=== PATIENT | male | born 1960 | race Caucasian/White ===

== ENCOUNTER → 2018-09-19 | Outpatient (REF) | payer OTHER | LOC: M SMT 17:08 | PROVIDERS: ATTEND Urology | DX: R33.8 Other retention of urine (principal) | CPT/HCPCS: 87088; 87186; G0463 ==

== ENCOUNTER → 2018-10-05 | Outpatient (CLI) | payer OTHER ==
[2018-10-05 18:49] LABS: APPEARANCE, URINE CLEAR (CLEAR); BACTERIA, URINE AUTO NEGATIVE (NEGATIVE); BILIRUBIN, URINE AUTO NEGATIVE (NEGATIVE); BLOOD, URINE BLOOD 3+ (NEGATIVE); COLOR, URINE COLORLESS (YELLOW); GLUCOSE, URINE (UA) AUTO NEGATIVE (NEGATIVE); KETONE, URINE AUTO NEGATIVE (NEGATIVE); LEUKOCYTE ESTERASE, URINE AUTO TRACE (NEGATIVE); MUCUS, URINE SMALL (NEGATIVE); NITRITE, URINE AUTO NEGATIVE (NEGATIVE); PROTEIN, URINE AUTO NEGATIVE (NEGATIVE); RBC, URINE AUTO TNTC /HPF (0-3); SPECIFIC GRAVITY URINE AUTO 1.005 (1.002-1.035); SQUAMOUS EPITHELIAL CELL UR AU 0 /HPF (0-6); UROBILINOGEN, URINE AUTO 0.2 mg/dL (0.0-2.0); WBC, URINE AUTO 8 /HPF (0-3)
== END ==
LOC: M SMT 08:00
DX: Z01.818 Encounter for other preprocedural examination (principal); R97.20 Elevated prostate specific antigen [PSA]; R33.9 Retention of urine, unspecified; Z96.0 Presence of urogenital implants
CPT/HCPCS: 81001

== ENCOUNTER → 2018-11-06 | Outpatient (CLI) | payer OTHER ==
[2018-11-06 18:46] LABS: ALT/SGPT 50 U/L (12-78); BILIRUBIN,TOTAL 0.6 MG/DL (0.2-1.0); BLOOD UREA NITROGEN 9 MG/DL (7-18); CALCIUM LEVEL 9.1 MG/DL (8.5-10.1); CARBON DIOXIDE LEVEL 27 MEQ/L (21-32); CHLORIDE LEVEL 104 MEQ/L (98-107); CREATININE FOR GFR 0.38 MG/DL (0.70-1.30); GLOMERULAR FILTRATION RATE > 60.0 (>56); GLUCOSE, FASTING 79 MG/DL (70-100); POTASSIUM SERUM 4.5 MEQ/L (3.5-5.1); SODIUM LEVEL 139 MEQ/L (136-145); TOTAL PROTEIN 7.3 GM/DL (6.4-8.2)
[2018-11-06 18:55] LABS: BASO # 0.1 10^3/uL (0.0-0.2); BASO % 0.7 % (0.0-1.0); EOS # 0.1 10^3/uL (0.0-0.50); EOS % 1.6 % (0.0-3.0); HEMATOCRIT 44.3 % (42.0-52.0); HEMOGLOBIN 14.6 g/dl (13.5-17.5); MEAN CORPUSCULAR VOLUME 87.9 fl (80.0-96.0); MONO # 0.4 10^3/uL (0.0-0.8); MONO % 6.1 % (0.0-5.0); NEUTROPHILS # 5.4 10^3/uL (1.8-7.7); NEUTROPHILS % 76.3 % (36.0-66.0); PLATELET COUNT, AUTOMATED 205 10^3/uL (150-450); RED BLOOD COUNT 5.04 10^6/uL (4.30-6.10); WHITE BLOOD COUNT 7.1 10^3/uL (4.0-10.0)
== END ==
LOC: M SMT 12:58
PROVIDERS: ATTEND Urology Pediatric Urology
DX: N31.9 Neuromuscular dysfunction of bladder, unspecified (principal)
CPT/HCPCS: 36415; 80053; 85025; G0463

== ENCOUNTER 2019-09-06 12:44 | Emergency (ER) | payer OTHER ==
[~2019-09-06] VITALS: Ht 170.2 cm; Wt 72.7 kg
[2019-09-06] MEDS ORDERED: SENN1TAB36 PO (13:22)
[2019-09-06] MEDS ORDERED: ELIQ5TAB PO (13:22)
[2019-09-06] MEDS ORDERED: SENN1TAB8 PO (13:22)
[2019-09-06] MEDS ORDERED: RILU1TAB2 PO (13:22)
[2019-09-06] MEDS ORDERED: FINA5TAB2 PO (13:22)
[2019-09-06] MEDS ORDERED: BACL10TA2 PO ×2 (13:22)
[2019-09-06] MEDS ORDERED: CHOL100029 PO (13:22)
[2019-09-06] MEDS ORDERED: HM V5000 PO (13:22)
[2019-09-06 13:31] LABS: BASO # 0.1 10^3/uL (0.0-0.2); BASO % 0.9 % (0.0-1.0); EOS # 0.2 10^3/uL (0.0-0.5); HEMATOCRIT 45.7 % (42.0-52.0); HEMOGLOBIN 14.5 g/dl (13.5-17.5); LYMPH # 1.2 10^3/uL (1.5-5.0); MEAN CORPUSCULAR HEMOGLOBIN 28.9 pg (27.0-33.0); MEAN CORPUSCULAR HGB CONC 31.7 g/dl (32.0-36.5); MONO # 0.4 10^3/uL (0.0-0.8); MONO % 5.1 % (0.0-5.0); NEUTROPHILS # 5.5 10^3/uL (1.5-8.5); NEUTROPHILS % 73.8 % (36.0-66.0); PLATELET COUNT, AUTOMATED 218 10^3/uL (150-450); RED BLOOD COUNT 5.02 10^6/uL (4.30-6.10); VENOUS BASE EXCESS 0.2 (-2.0-2.0); VENOUS HCO3 24.9 MEQ/L (23.0-27.0); VENOUS O2 SATURATION 96.3 % (60.0-80.0); VENOUS PARTIAL PRESSURE CO2 40.5 mmHg (38.0-50.0); VENOUS PARTIAL PRESSURE O2 85.4 mmHg (30.0-50.0); VENOUS PH 7.407 UNITS (7.330-7.430); VENOUS STANDARD HCO3 24.7 MEQ/L; VENOUS TOTAL CO2 26.2 MEQ/L (24.0-28.0); WHITE BLOOD COUNT 7.4 10^3/uL (4.0-10.0)
[2019-09-06 13:51] LABS: ALBUMIN 3.8 GM/DL (3.2-5.2); ALT/SGPT 37 U/L (12-78); BILIRUBIN,DIRECT 0.2 MG/DL (0.0-0.2); BILIRUBIN,TOTAL 0.7 MG/DL (0.2-1.0); BLOOD UREA NITROGEN 8 MG/DL (7-18); CALCIUM LEVEL 8.6 MG/DL (8.8-10.2); CARBON DIOXIDE LEVEL 30 MEQ/L (21-32); CHLORIDE LEVEL 104 MEQ/L (98-107); CK-MB VALUE MASS 7.1 NG/ML (<3.6); CPK CREATINE PHOSPHOKINASE 162 U/L (39-308); GLOMERULAR FILTRATION RATE > 60.0 (>49); GLUCOSE, FASTING 92 MG/DL (70-100); MB/CK RELATIVE INDEX 4.38 (< OR =4); NT-PRO BNP 39 PG/ML (<125); SODIUM LEVEL 139 MEQ/L (136-145); THYROXINE (T4) 11.9 UG/DL (4.5-12.0); TOTAL PROTEIN 7.4 GM/DL (6.4-8.2); TROPONIN I < 0.02 NG/ML (< 0.10)
--- NOTE | 2019-09-06 14:22 | REP ---
Portable chest x-ray: Sitting AP view. History: Dyspnea and cough. Findings: Monitoring electrodes and oxygen delivery tubing are seen. There is mild linear fibrosis in both lung bases. Lung kruse are otherwise clear. Pleural angles are sharp. Heart is not enlarged. Pulmonary vasculature is not increased. Impression: Mild linear fibrosis in both bases. Otherwise no acute disease. Electronically Signed by Ap Tucker MD 09/06/2019 02:13 P
[2019-09-06] MEDS ORDERED: AUGM875T28 PO (14:57)
[2019-09-06] MEDS ORDERED: AUGMENTIN 875 MG TAB PO ONE (15:00)
[2019-09-06] MEDS ORDERED: PILL CUTTER 1 EACH XX ONE (15:00)
[2019-09-06 15:02] VITALS: BP 133/82
--- NOTE | 2019-09-06 20:57 | ECGEPIP ---
[facility] - ED Test Date: 2019-09-06 Pat Name: KYAW GRANT Department: Room: - Gender: Male [employer] Operator: EMPERATRIZ : 1960 Requested By: RODOLFO Rodríguez Order Number: [id number] Reading MD: Rodolfo Velazquez Measurements Intervals [place] Rate: 89 P: 47 NM: 161 QRS: -5 QRSD: 116 T: 16 QT: 356 QTc: 434 Interpretive Statements SINUS RHYTHM Significant artifact Electronically Signed on 09-06-2019 20:57:39 EST by Rodolfo Velazquez
== END 2019-09-06 15:23 | disposition home or self-care (01) ==
LOC: M ED 12:44
DX: T17.900A Unspecified foreign body in respiratory tract, part unspecified causing asphyxiation, initial encounter (principal); G12.21 Amyotrophic lateral sclerosis; E78.5 Hyperlipidemia, unspecified; R13.13 Dysphagia, pharyngeal phase; Z86.718 Personal history of other venous thrombosis and embolism; Z93.1 Gastrostomy status; Z79.01 Long term (current) use of anticoagulants; Z79.899 Other long term (current) drug therapy

== ENCOUNTER → 2019-09-06 | Outpatient (CLI) | payer OTHER ==
[~2019-09-06] MED LIST: AUGM875T28 PO; BACL10TA2 PO; CHOL100029 PO; ELIQ5TAB PO; FINA5TAB2 PO; HM V5000 PO; RILU1TAB2 PO; SENN1TAB36 PO; SENN1TAB8 PO
--- NOTE | 2019-09-06 17:27 | REP ---
COOKIE SWALLOW The procedure was performed under the direct supervision of Dr. Tucker. The procedure was performed with Shazia Ellis from speech pathology present. 5 ml aliquots of thin, nectar, pudding, mixed fruit, soft, honey and solid consistency barium was administered. With solid consistency barium there is aspiration. A detailed report of this examination will be provided by speech pathology. 1.7 minutes of fluoroscopy time was utilized for this procedure. Electronically Signed by JOSUE Ng 09/06/2019 03:23 P Electronically Signed by Ap Tucker MD 09/06/2019 05:18 P
== END ==
LOC: M ST 11:09
DX: R13.13 Dysphagia, pharyngeal phase (principal)